=== PATIENT | male | born 1950 | race Caucasian/White ===

== ENCOUNTER → 2016-05-31 | Outpatient (CLI) | payer MEDICARE, MEDICAID ==
--- NOTE | 2016-05-31 09:44 | Diagnostic Imaging Report ---
PROCEDURE: CT chest pelvis with and abdomen with and without contrast. TECHNIQUE: Multiple contiguous axial images were obtained through the chest, abdomen and pelvis after uneventful bolus administration of intravenous contrast. Precontrast acquisitions were acquired through the abdomen. INDICATION: Rectal cancer followup. Status post resection. COMPARISON: 03/19/2016 and 10/28/2015 CT CHEST FINDINGS: No endoluminal lesion in the trachea or central bronchi. No pulmonary mass, suspicious nodule or consolidations. Groundglass attenuation in the lung bases is most likely due to atelectasis. Stable bilateral thyroid hypodensities, largest on the right. Right IJ Port-A-Cath has tip terminating in the upper SVC. No supraclavicular or axillary lymphadenopathy. No mediastinal, hilar or juxtaphrenic lymphadenopathy. Stable cardiomegaly without pericardial effusion. Thoracic aorta is normal in caliber. Common origin of the right innominate and left common carotid artery is present, a normal branching variant from the aortic arch. No concerning osseous lesions in the thorax. IMPRESSION: 1. Stable CT chest without evidence of metastatic disease. CT ABDOMEN AND PELVIS FINDINGS: No focal hepatic lesion to indicate metastatic disease. Stable layering gallstones within the gallbladder fundus. No gallbladder wall thickening or pericholecystic fluid. The spleen, pancreas and adrenals are normal. Kidneys enhance normally without suspicious mass lesion. No obstructive uropathy. Surgical changes from rectal resection with left lower quadrant colostomy. No parastomal hernia. Presacral fluid collection with peripheral enhancement is similar in size measuring 5.1 x 3.2 cm. The previously noted intrinsic foci of air have resolved. Mild diffuse bladder wall thickening persists. No bowel obstruction. Contrast is seen to the level of the distal ileum. Normal caliber abdominal aorta. No abdominal or pelvic lymphadenopathy. Evaluation of the mesorectal fat is limited due to postoperative change in presacral fluid collection. No concerning osseous lesions in the abdomen or pelvis to suggest osseous metastasis. IMPRESSION: 1. Surgical changes from rectal resection with diverting left lower quadrant colostomy. Postoperative presacral and peripherally enhancing fluid collection is stable in size. The previously noted intrinsic foci of air have resolved. 2. No evidence of metastatic disease in the abdomen or pelvis. Dictated by: Dictated on workstation # [id number]
== END ==
LOC: RAD 06:44
PROVIDERS: ATTEND Internal Medicine Hematology & Oncology
DX: C20 Malignant neoplasm of rectum (principal)
CPT/HCPCS: 71260; 74178; Q9967

== ENCOUNTER → 2016-09-13 | Outpatient (CLI) | payer MEDICAID, MEDICARE ==
--- NOTE | 2016-09-13 12:50 | Diagnostic Imaging Report ---
PROCEDURE: CT chest pelvis with and abdomen with and without contrast. TECHNIQUE: Multiple contiguous axial images were obtained through the chest, abdomen and pelvis after uneventful bolus administration of intravenous contrast. Precontrast acquisitions were acquired through the abdomen. INDICATION: Rectal cancer. Exam compared 05/31/2016. FINDINGS: Chest: Tiny nonloculated left pleural effusion has developed to a depth of 11 mm. There is a small pericardial effusion with a maximal thickness of 9 mm adjacent to the left heart border posteriorly, this is unchanged. Some mild chronic areas of groundglass opacity in the lingular segment and both lower lobes unchanged. No findings felt suggestive of acute pneumonia and no suspicious pulmonary nodule or dominant lung mass. No hilar, mediastinal nor axillary adenopathy and no acute or suspicious chest wall pathology. Small nodule in the right thyroid lobe stable at 1.2 cm. Aorta is nonaneurysmal. Abdomen: We again note no findings of hepatic metastasis. Cholelithiasis noted without biliary ductal dilatation. The spleen negative. Pancreas unremarkable. There is no adrenal mass. The unobstructed kidneys normal. There is mildly elevated fecal load at the cecum and proximal ascending colon as well as residual descending colon to the level of the left lower quadrant diverting ostomy. The mid large bowel was distended with gas. The small bowel is not pathologically dilated. No abdominal mesenteric or retroperitoneal adenopathy. No parastomal hernia. Pelvis: Presacral and retro-bladder fluid collection contains a few tiny bubbles of gas and shows further interval reduction in size, today 4.5 cm transverse x 2.1 cm AP. It previously measured 5.1 x 3.2 cm. Induration of the presacral and precoccygeal fat is an unchanged finding. No suspicious lymph nodes in the inguinal canals or pelvic sidewalls. Some thickening of the butterfield of the urinary bladder which could be from radiation cystitis or reflect infectious disease, correlate clinically. If indicated, urinalysis may be of benefit. There is no air within the bladder lumen. There are degenerative changes of the osseous structures with no suspicious bone production or destruction. IMPRESSION: Development of tiny left pleural effusion nonloculated. Stable small pericardial effusion. No lung mass or thoracic adenopathy. Abdomen: Stable negative liver. Cholelithiasis without biliary dilatation. No adenopathy. Constipation and likely mild obstipation noted without gita obstruction or small bowel dilatation. Pelvis: Postoperative changes with further reduction in gas/fluid collection presacral with induration of the soft tissues anterior to the sacral and coccygeal segments unchanged. No pelvic lymphadenopathy. Thickening of the urinary bladder wall indeterminate. Diverting ostomy without parastomal hernia. Dictated by: Dictated on workstation # [id number]
== END ==
LOC: RAD 08:00
PROVIDERS: ATTEND Internal Medicine Hematology & Oncology
DX: C20 Malignant neoplasm of rectum (principal)
CPT/HCPCS: 71260; 74178; Q9967